=== PATIENT | male | born 1985 | race Asian ===

== ENCOUNTER 2021-06-30 09:43 | Emergency (ER) | payer BC, OTHER ==
[2021-06-30 09:47] VITALS: BP 137/82; PULSE 90; TEMP 98.4; BMI 27.4
== END 2021-06-30 10:37 | disposition home or self-care (01) ==
LOC: JER 09:43
DX: M20.021 Boutonniere deformity of right finger(s) (principal)
CPT/HCPCS: 73130-TC-RT-FY; 99283-25

== ENCOUNTER 2022-11-22 04:17 | Day surgery (SDC) | payer OTHER ==
[2022-11-19 14:31] VITALS: BMI 27.3
[2022-11-22] MEDS ORDERED: LIDOCAINE HCL 1%, 10 MG/ML (20ML VIAL) ONE (07:18)
[2022-11-22] MEDS ORDERED: PROPOFOL 20 ML ONE (07:56)
[2022-11-22] MEDS ORDERED: SUCCINYLCHOLINE CHLORIDE 200 MG/10 ML SYRINGE ONE (07:56)
[2022-11-22] MEDS ORDERED: ROCURONIUM BROMIDE 50 MG/5 ML SYRINGE ONE (07:57)
[2022-11-22] MEDS ORDERED: MIDAZOLAM HCL 2 MG/2 ML SINGLE DOSE VIAL ONE (07:57)
[2022-11-22] MEDS ORDERED: ONDANSETRON 4 MG/2 ML VIAL IVPUSH PRN (10:39)
[2022-11-22] MEDS ORDERED: oxyCODONE HCL 5 MG TABLET PO PRN (10:39)
[2022-11-22 11:10] VITALS: RESP 18
[2022-11-22 11:38] VITALS: BP 130/69; PULSE 90; TEMP 97.7
== END 2022-11-22 12:30 | disposition home or self-care (01) ==
LOC: JASU-SURG 04:17
PROVIDERS: ATTEND Surgery
PROC: 0JB70ZZ Excision of Back Subcutaneous Tissue and Fascia, Open Approach (ICD-10-PCS; principal; 2022-11-22 08:00)
DX: D21.6 Benign neoplasm of connective and other soft tissue of trunk, unspecified (principal)
CPT/HCPCS: 88304-TC; 94760